=== PATIENT | male | born 1945 | race Caucasian/White ===

== ENCOUNTER 2017-09-20 19:19 | Inpatient (IN) ==
[2017-09-20] MEDS ORDERED: 0.9 % Sodium Chloride 1,000 ML IVC ONE (20:00)
--- NOTE | 2017-09-20 20:03 | Emergency Department Note ---
Disposition Clinical Impression: Elevated troponin, NSTEMI (non-ST elevated myocardial infarction) Cellulitis Qualifiers: Site of cellulitis: extremity Site of cellulitis of extremity: lower extremity Laterality: left Qualified Code(s): L03.116 - Cellulitis of left lower limb Sepsis Qualifiers: Sepsis type: sepsis due to unspecified organism Qualified Code(s): A41.9 - Sepsis, unspecified organism Disposition: Admitted As Inpatient Condition: Undetermined Referrals: Kleber Acuna, [Primary Care Provider] - Forms: ED Satisfaction Letter Time of Disposition: 22:09 Fever HPI - General Chief Complaint: ED Fever Stated Complaint: Weakness/fever Time Seen by Provider: 09/20/17 19:47 Source: patient, family Mode of arrival: private vehicle Limitations: no limitations Nursing Notes Reviewed: Yes Vital Signs Reviewed: Yes - History of Present Illness HPI Narrative: 71-year-old male arrives to the emergency department with generalized weakness. The patient states that he went to bed very late last night after leaving the template. The family member noted that he woke up at roughly 10 AM and was walking around and seemed kind of confused. She thought he just was not fully awake so she went walked him back to bed. She states that he woke up at 4:30 this afternoon and just continued to remain weak. He denies any other complaints other than a little bit of dyspnea which his not baseline for him as well as increased left lower extremity swelling and tenderness. The patient states she has no history of DVT but I previous record he has history of DVT. The patient takes no anticoagulation. He denies any other complaints at this time. He is febrile and tachycardic upon arrival to the emergency department. - Related Data Allergies Allergy/AdvReac Type Severity Reaction Status Date / Time No Known Allergies Allergy Verified 09/20/17 19:21 All systems ED: reviewed and negative except as stated. Constitutional: Reports: fever, chills, weakness ENT ED: Denies: congestion Cardiovascular: Reports: edema. Denies: chest pain, palpitations, dyspnea on exertion, orthopnea Respiratory: Reports: dyspnea. Denies: cough, wheezes, hemoptysis Gastrointestinal: Denies: abdominal pain, nausea, vomiting, diarrhea Genitourinary: Denies: urgency, dysuria Musculoskeletal: Denies: back pain, neck pain, arthralgia, myalgia Integumentary: Denies: rash Neurological: Reports: weakness, confusion. Denies: headache, numbness, paresthesias, abnormal gait, vertigo Fever PMH - Past Medical History Medical history: Reports: DVT, hyperlipidemia, hypertension Surgical history: Reports: non-contributory Psychiatric history: Reports: no psych history - Social History Smoking Status: Current every day smoker Alcohol use: Reports: none Drug use: Reports: none Physical Exam - General Limitations: no limitations General appearance: alert, in no apparent distress - Head Head exam: atraumatic, normocephalic, normal inspection - Eye Eye exam: Present: normal appearance, PERRL, EOMI - ENT ENT exam: normal exam, normal oropharynx, mucous membranes moist - Neck Neck exam: Present: normal inspection, full ROM, trachea midline - Chest Chest inspection: Present: normal inspection, symmetric chest wall rise - Respiratory Respiratory exam: Present: other (coarse breath sounds). Absent: respiratory distress, wheezes - Cardiovascular Cardiovascular exam: Present: normal rhythm, tachycardia, normal heart sounds - Abdominal Exam Abdominal exam: Present: soft, Non-Tender. Absent: tenderness, distention, guarding, rebound, rigidity - Extremities Exam Extremities exam: Present: full ROM, pedal edema, other (Chronic venous stasis staining WITH left lower extremity swelling and erythema). Absent: tenderness - Neurological Exam Neurological exam: Present: alert, oriented X3 - Expanded Neurological Exam Patient oriented to: Present: person, place, time Speech: Present: fluid speech Cranial nerves: EOM function (II, III, IV, ): Normal, facial sensation (V): Normal, facial palsy (VII): Normal Motor strength - LUE: 4/5 Motor strength - RUE: 4/5 Motor strength - LLE: 4/5 Motor strength - RLE: 4/5 Sensory exam upper extremity: light touch: Normal Sensory exam lower extremity: light touch: Normal Coma Scale Eye Opening: Spontaneous Coma Scale Motor Response: Obeys Commands Coma Scale Verbal Response: Oriented Coma Scale Total: 15 - Skin Skin exam: Present: warm, dry, erythema (Left lower extremity about the ankle. Hot to the touch.) Course Vital Signs Temperature 100.5 F H 09/20/17 19:21 Pulse Rate 105 09/20/17 19:21 Respiratory Rate 20 09/20/17 19:21 Blood Pressure 160/84 09/20/17 19:21 O2 Sat by Pulse Oximetry 94 09/20/17 19:21 Temperature 100.5 F H 09/20/17 19:21 Pulse Rate 105 09/20/17 19:21 Respiratory Rate 20 09/20/17 19:21 Blood Pressure 160/84 09/20/17 19:21 O2 Sat by Pulse Oximetry 95 09/20/17 20:04 Oxygen Delivery Oxygen Delivery Room Air Fever - MDM Narrative Medical decision making narrative: Workup in the emergency department demonstrates findings consistent with cellulitis of the left lower extremity. The patient had an elevated troponin without EKG changes. The patient was started on heparin. Patient denies any black or bloody stools any other signs of bleeding. In addition the patient's CTA of the chest with concerning for PE demonstrates no central pulmonary embolus but was difficult to assess in the segmental and subsegmental pulmonary arteries. Since the patient was started on heparin we will go ahead and admit the patient to the hospital. The patient was also started on vancomycin and cefepime with concern for the cellulitis. He is demonstrated an elevated lactic acid as well. The patient's heart rate is continued to decline on IV fluids. His O2 saturation is at 94-95% on room air. The patient's tachypnea has begun to resolve. The patient's blood pressure has rate stable throughout his stay in the emergency department. The patient was accepted to the hospital by Dr. Odell. - Lab Data Lab results reviewed: Yes I reviewed the patient's lab results. Result diagrams: 09/20/17 19:28 09/20/17 19:28 Lab Results 09/20/17 09/20/17 09/20/17 Range/Units 19:27 19:28 19:28 WBC 24.9 H (4.3-11.1) K/mcL RBC 4.36 (4.19-5.50) M/mcL Hgb 15.3 (12.9-16.9) g/dL Hct 42.8 (37.5-50.1) % MCV 98.2 (83.0-100.0) fL MCH 35.1 H (28.0-33.3) pg MCHC 35.7 H (31.6-35.5) g/dL RDW 12.7 (11.5-14.5) % Plt Count 158 (140-400) K/mcL MPV 10.7 (9.4-12.4) fL Immature Gran % 1.3 (0-4) % Seg Neutrophils % 90.9 % Lymphocytes % 2.5 % Monocytes % 5.2 % Eosinophils % 0.0 % Basophils % 0.1 % Neutrophils # 22.6 H (1.6-8.9) K/mcL Lymphocytes # 0.6 (0.6-4.6) K/mcL Monocytes # 1.3 (0.0-1.3) K/mcL Eosinophils # 0.0 (0.0-0.6) K/mcL Basophils # 0.0 (0.0-0.2) K/mcL Platelet Estimate Normal (Normal) D-Dimer 1867 H (0-500) ng/mLFEU Sodium 135 L (136-145) mEq/L Potassium 4.0 (3.5-5.1) mEq/L Chloride 104 (98-107) mEq/L Carbon Dioxide 20 L (23-29) mEq/L BUN 21 (8-23) mg/dL Creatinine 1.16 (0.70-1.30) mg/dL Est GFR ( Amer) > 60 (> 60) Est GFR (Non-Af Amer) > 60 (> 60) BUN/Creatinine Ratio 18 (6-26) Glucose 159 H (70-105) mg/dL Calculated Osmolality 286 (280-300) Lactic Acid (0.5-2.2) mmol/L Calcium 9.4 (8.6-10.3) mg/dL Troponin I 0.25 H* (< 0.04) ng/mL B-Natriuretic Peptide (Less than 100) pg/mL 09/20/17 09/20/17 09/20/17 Range/Units 19:28 20:05 21:28 WBC (4.3-11.1) K/mcL RBC (4.19-5.50) M/mcL Hgb (12.9-16.9) g/dL Hct (37.5-50.1) % MCV (83.0-100.0) fL MCH (28.0-33.3) pg MCHC (31.6-35.5) g/dL RDW (11.5-14.5) % Plt Count (140-400) K/mcL MPV (9.4-12.4) fL Immature Gran % (0-4) % Seg Neutrophils % % Lymphocytes % % Monocytes % % Eosinophils % % Basophils % % Neutrophils # (1.6-8.9) K/mcL Lymphocytes # (0.6-4.6) K/mcL Monocytes # (0.0-1.3) K/mcL Eosinophils # (0.0-0.6) K/mcL Basophils # (0.0-0.2) K/mcL Platelet Estimate (Normal) D-Dimer (0-500) ng/mLFEU Sodium (136-145) mEq/L Potassium (3.5-5.1) mEq/L Chloride (98-107) mEq/L Carbon Dioxide (23-29) mEq/L BUN (8-23) mg/dL Creatinine (0.70-1.30) mg/dL Est GFR ( Amer) (> 60) Est GFR (Non-Af Amer) (> 60) BUN/Creatinine Ratio (6-26) Glucose (70-105) mg/dL Calculated Osmolality (280-300) Lactic Acid 2.9 H 3.0 H (0.5-2.2) mmol/L Calcium (8.6-10.3) mg/dL Troponin I (< 0.04) ng/mL B-Natriuretic Peptide 187 H (Less than 100) pg/mL - Radiology Data Radiology results reviewed: Yes I reviewed the patient's radiology results. Chest X-Ray 09/20/17 19:28 IMPRESSION: No acute process. D/ / David Anthony MD / David Anthony MD Interpreting Provider: David nAthony MD Chest CTA 09/20/17 20:26 IMPRESSION: Limited evaluation of the segmental and subsegmental pulmonary arterial branches. No central pulmonary embolism. 6 mm nodule in a right upper lobe. Recommendations below RECOMMENDATIONS: Fleischner Society guidelines for follow-up and management of incidentally detected pulmonary nodules: Single Solid Nodule: Nodule size equals 6-8 mm In a low-risk patient, CT at 6-12 months, then consider CT at 18-24 months. In a high-risk patient, CT at 6-12 months, then CT at 18-24 months. - Low risk patients include individuals with minimal or absent history of smoking and other known risk factors. - High risk patients include individuals with a history or smoking or known risk factors. Radiology 2017 http://pubs.[facility]na.org/doi/full/10.1148/radiol.[email or web address] D/ / Monty Mansfield MD / Monty Mansfield MD Interpreting Provider: Monty Mansfield MD - EKG Data EKG attestation: Yes I reviewed and interpreted this EKG. EKG results narrative: Heart rate 10 2 bpm. Sinus tachycardia. Right bundle branch block. No ST elevation or ST depression noted.
[2017-09-20 20:15] LABS: Basophils % 0.1 %; Hematocrit 42.8 % (37.5-50.1); Hemoglobin 15.3 g/dL (12.9-16.9); Immature Granulocytes % 1.3 % (0-4); Lymphocytes # 0.6 K/mcL (0.6-4.6); Lymphocytes % 2.5 %; Mean Corpuscular HGB Conc 35.7 g/dL (31.6-35.5); Mean Corpuscular Hemoglobin 35.1 pg (28.0-33.3); Mean Corpuscular Volume 98.2 fL (83.0-100.0); Mean Platelet Volume 10.7 fL (9.4-12.4); Monocytes # 1.3 K/mcL (0.0-1.3); Monocytes % 5.2 %; Neutrophils # 22.6 K/mcL (1.6-8.9); Platelet Count 158 K/mcL (140-400); Red Blood Count 4.36 M/mcL (4.19-5.50); Red Cell Distribution Width 12.7 % (11.5-14.5); Segmented Neutrophils % 90.9 %
[2017-09-20] MEDS ORDERED: Isovue-370 500 ML INFUS..BTL IV ONE (20:26)
[2017-09-20] MEDS ORDERED: Ibuprofen 600 MG TABLET PO ONE (20:32)
[2017-09-20 20:36] LABS: Platelet Estimate Normal (Normal)
[2017-09-20 20:37] LABS: BUN/Creatinine Ratio 18 (6-26); Blood Urea Nitrogen 21 mg/dL (8-23); Calcium 9.4 mg/dL (8.6-10.3); Carbon Dioxide 20 mEq/L (23-29); Chloride 104 mEq/L (98-107); Glucose 159 mg/dL (70-105); Osmolality,Calculated 286 (280-300); Sodium 135 mEq/L (136-145); eGFR For African Americans > 60 (> 60); eGFR For Non-African Americans > 60 (> 60)
[2017-09-20 20:42] LABS: Troponin I 0.25 ng/mL (< 0.04)
[2017-09-20] MEDS ORDERED: Aspirin 325 MG TABLET PO ONE (20:42)
[2017-09-20] MEDS ORDERED: 0.9 % Sodium Chloride 500 ML IVC ONE (20:43)
--- NOTE | 2017-09-20 20:52 | Emergency Department Note ---
Disposition Clinical Impression: Cellulitis Qualifiers: Site of cellulitis: extremity Site of cellulitis of extremity: lower extremity Laterality: left Qualified Code(s): L03.116 - Cellulitis of left lower limb Disposition: Still a Patient Condition: Fair Referrals: Kleber Acuna DO [Primary Care Provider] - Forms: ED Satisfaction Letter General Adult HPI - General Chief complaint: ED Fever Stated complaint: Weakness/fever Time Seen by Provider: 09/20/17 19:47 Source: patient, family Mode of arrival: private vehicle Limitations: no limitations Nursing Notes Reviewed: Yes Vital Signs Reviewed: Yes - History of Present Illness Pain Scale: 0 - Related Data Allergies Allergy/AdvReac Type Severity Reaction Status Date / Time No Known Allergies Allergy Verified 09/20/17 19:21 Constitutional: Reports: fever, chills, weakness ENT ED: Denies: congestion Cardiovascular: Reports: edema. Denies: chest pain, palpitations, dyspnea on exertion, orthopnea Respiratory: Reports: dyspnea. Denies: cough, wheezes, hemoptysis Gastrointestinal: Denies: abdominal pain, nausea, vomiting, diarrhea Genitourinary: Denies: urgency, dysuria Musculoskeletal: Denies: back pain, neck pain, arthralgia, myalgia Integumentary: Denies: rash Neurological: Reports: weakness, confusion. Denies: headache, numbness, paresthesias, abnormal gait, vertigo Past Medical History - Past Medical History Medical history: Reports: DVT, hyperlipidemia, hypertension Surgical history: Reports: non-contributory Psychiatric history: Reports: no psych history - Social History Smoking Status: Current every day smoker Smokeless Tobacco Status: No Alcohol use: Reports: none Drug use: Reports: none Physical Exam - General Limitations: no limitations General appearance: alert, in no apparent distress Course Vital Signs Temperature 100.5 F H 09/20/17 19:21 Pulse Rate 105 09/20/17 19:21 Respiratory Rate 20 09/20/17 19:21 Blood Pressure 160/84 09/20/17 19:21 O2 Sat by Pulse Oximetry 94 09/20/17 19:21 Temperature 100.5 F H 09/20/17 19:21 Pulse Rate 105 09/20/17 19:21 Respiratory Rate 20 09/20/17 19:21 Blood Pressure 160/84 09/20/17 19:21 O2 Sat by Pulse Oximetry 95 09/20/17 20:04 Oxygen Delivery Oxygen Delivery Room Air Medical Decision Making - Lab Data Result diagrams: 09/20/17 19:28 Lab Results 09/20/17 09/20/17 09/20/17 Range/Units 19:27 19:28 20:05 WBC 24.9 H (4.3-11.1) K/mcL RBC 4.36 (4.19-5.50) M/mcL Hgb 15.3 (12.9-16.9) g/dL Hct 42.8 (37.5-50.1) % MCV 98.2 (83.0-100.0) fL MCH 35.1 H (28.0-33.3) pg MCHC 35.7 H (31.6-35.5) g/dL RDW 12.7 (11.5-14.5) % Plt Count 158 (140-400) K/mcL MPV 10.7 (9.4-12.4) fL Immature Gran % 1.3 (0-4) % Seg Neutrophils % 90.9 % Lymphocytes % 2.5 % Monocytes % 5.2 % Eosinophils % 0.0 % Basophils % 0.1 % Neutrophils # 22.6 H (1.6-8.9) K/mcL Lymphocytes # 0.6 (0.6-4.6) K/mcL Monocytes # 1.3 (0.0-1.3) K/mcL Eosinophils # 0.0 (0.0-0.6) K/mcL Basophils # 0.0 (0.0-0.2) K/mcL Platelet Estimate Normal (Normal) D-Dimer 1867 H (0-500) ng/mLFEU Lactic Acid 2.9 H (0.5-2.2) mmol/L Attestation Statement - Attestation Attestation: I, Guy Apple, examined this patient and my medical decision-making was reviewed with the MORTGAGE OPERATIONS MANAGER/PA/Advanced Practice Nurse/Resident Physician. I agree with the documented findings, disposition and treatment plan as described except to the extent set forth below. 71-year-old male presents emergency department for further evaluation of weakness, fever. Daughter states patient was in his usual state of health last night when he attended a play. He woke this morning with increased erythema and edema of the left lower extremity as well as increased shortness of breath. Patient states he has had a dry nonproductive cough for multiple weeks which has not changed. He denies abdominal pain. No other recent changes in medications however he is noncompliant with his Lasix. Patient denies chest pain, palpitations, near syncopal event. On physical evaluation the patient has swelling of the left lower extremity with increased urinary erythema and warmth to the touch compared to the right lower extremity. Patient satting 95% in the emergency department. Patient was febrile and tachycardic on the initial evaluation. We will obtain CT of the chest and ultrasound of the left lower extremity to rule out thromboembolism. Laboratory evaluation and imaging is pending at this time. Patient will likely be admitted to the hospital.
[2017-09-20] MEDS ORDERED: Cefepime HCl 1,000 MG in Water for inj. (sterile) 20 ML 10 ML IVP STA (21:52)
[2017-09-20] MEDS ORDERED: *HR* Heparin 5,000 UNIT/ML VIAL IVP PRN ×2 (22:04)
[2017-09-20] MEDS ORDERED: *HR* Heparin 5,000 UNIT/ML VIAL IVP ONE (22:04)
[2017-09-20 22:16] LABS: INR 1.2; Prothrombin Time 13.4 Seconds (9.4-12.1)
[2017-09-20 22:19] LABS: Activated Partial Thrombo Time 27.7 Seconds (26.0-36.0)
[2017-09-20 22:20] LABS: Bilirubin,Urine Negative (Negative); Blood,Urine Moderate (Negative); Clarity,Urine Clear (Clear); Color,Urine Yellow (Yellow); Glucose,Urine (UA) Normal (Normal); Ketones,Urine Negative (Negative); Leukocyte Esterase,Urine Negative (Negative); Nitrite,Urine Negative (Negative); Protein,Urine 100 mg/dL (Neg-Trace); Specific Gravity,Urine > 1.030 (1.010-1.025); Urobilinogen,Urine Normal (Normal)
[2017-09-20 22:21] LABS: Hyaline Casts,Urine None Seen per lpf (None-Few); Squamous Epithelial Cell,Urine Many per lpf (None-Few); WBC,Urine 0-3 per hpf (0-3)
[2017-09-20 22:30] LABS: Bacteria,Urine Few per hpf (None-Few)
[2017-09-20] MEDS ORDERED: traMADol 50 MG TABLET PO PRN (22:47)
[2017-09-20] MEDS ORDERED: Acetaminophen 325 MG TABLET PO PRN (22:47)
[2017-09-20] MEDS ORDERED: Naloxone 0.4 MG/ML INJ IVP PRN (22:47)
[2017-09-20] MEDS ORDERED: Vancomycin (wt based) 1,000 MG VIAL IVPB SCH (23:00)
--- NOTE | 2017-09-20 23:13 | Internal Med History&Physical ---
Date of Encounter: 09/20/17 Time of Encounter: 22:30 Internal Medicine - H&P: HPI Chief complaint: SOB; fever; leg pain/swelling Admitted From: Emergency Dept Plans for Post Hospital Care: Home History of present illness: Mr. Lang is a 71 year old male who presents with a 12-15 hour history of short of breath, low-grade fevers, weakness, left leg pain, and chills. He was seen and evaluated in the ER and found to have evidence of left lower extremity cellulitis and sepsis. Additionally, he had an elevated d-dimer and positive troponin. This prompted CT angiogram of chest which was of sub-optimal quality. Nonetheless, it did did rule out any central pulmonary embolus. Lower Extremity Doppler studies were ordered and have yet to be done. Nonetheless, he is being started on heparin drip given his symptoms and troponin elevation. He was subsequently admitted to the hospitalist service. Upon my assessment of the patient, he appears ill but nontoxic. He appears dehydrated. He admits to having had sudden onset of shortness of breath earlier this morning, low grade fever, left leg pain, and left leg swelling. He denies any chest pain, cough, congestion, vomiting, or diarrhea. He denies any heart disease history or any history of clots. He does have sleep apnea and has been noncompliant with his CPAP mask. Regarding concern for clot, family history is negative for DVT or PE. Furthermore, he has had no prolonged travel or injury to his vasculature of his lower extremities. Past Med Surg Social Fam HX - Past Medical History Attestation: Yes The following information was validated with the patient. Source: patient, obtained from family, other (ER records) Medical history: hyperlipidemia, hypertension Psychiatric history: no psych history - Past Surgical History Surgical History: no surgical history - Social History Smoking Status: Current every day smoker Smokeless Tobacco Status: No Alcohol use: none Drug use: none Current living situation: Home, With Family Activity Level: Independent ambulation Recent Out of Country Travel Within the Last 8 Weeks: No - Family History Mother Living Status: Hx Family Cardiac Disorders: No Father Living Status: Hx Family Cardiac Disorders: Yes - Additional Family History Additional family history: NO FH DVT/PE Internal Medicine - H&P: Meds 3 Allergy/AdvReac Type Severity Reaction Status Date / Time No Known Allergies Allergy Verified 09/20/17 19:21 - Constitutional Constitutional: chills, fever(s), weakness, no night sweats - EENT Eyes: no blurry vision, no change in vision Ears: no ear pain, no tinnitus Nose, mouth and throat: no nasal congestion, no nasal discharge, no sinus pressure, no sore throat - Cardiovascular Cardiovascular ROS IM: dyspnea, dyspnea on exertion, edema (chronic BLE; acute LLE), no chest pain, no lightheadedness, no orthopnea, no palpitations, no paroxysmal nocturnal dyspnea, no syncope - Respiratory Respiratory: dyspnea, dyspnea on exertion, no cough, no hemoptysis, no wheezing , no pain on inspiration, no chest congestion, no excessive phlegm production, no change in phlegm color, no pain with cough - Gastrointestinal Gastrointestinal: no abdominal pain, no diarrhea, no hematemesis, no hematochezia, no melena, no nausea, no vomiting - Genitourinary Genitourinary ROS male: no dysuria, no flank pain, no hematuria - Musculoskeletal Musculoskeletal ROS IM: muscle cramps, myalgias (left leg), no arthralgias, no back pain, no limited range of motion - Integumentary Integumentary IM: rash (LLE redness), no jaundice - Neurological Neurological ROS: no dizziness, no focal weakness, no frequent falls, no headache(s) - Psychiatric Psychiatric: no anxiety, no depression - Endocrine Endocrine IM: no polydipsia, no polyuria - Allergic/Immunologic Allergic/Immunologic: no wheezing, no GI upset with certain foods - Constitutional Vitals: Temp Pulse Resp BP Pulse Ox 100.5 F H 105 20 160/84 95 09/20/17 19:21 09/20/17 19:21 09/20/17 19:21 09/20/17 19:21 09/20/17 20:04 General appearance: Present: cooperative, mild distress (appears ill but non- toxic; dry), A&O X 3, pleasant, answers questions appropriately - Head Head exam: Present: atraumatic, normal inspection - Eye Eye exam: Present: EOMI, normal appearance, PERRL. Absent: scleral icterus Pupils: Present: normal accommodation - ENT ENT exam: Present: mucous membranes dry, normal exam, normal oropharynx - Neck Neck exam general surgery: Present: full ROM, supple. Absent: lymphadenopathy, tenderness, nuchal rigidity, thyromegaly - Expanded Neck Exam Neck exam: Absent: carotid bruit - Respiratory Respiratory exam: Present: CTAB. Absent: accessory muscle use, chest wall tenderness, rales, respiratory distress, rhonchi, wheezes - Cardiovascular Cardiovascular exam: Present: distant heart sounds, RRR, +S1, +S2. Absent: diastolic murmur, JVD, systolic murmur - GI/Abdominal GI/Abdominal exam: Present: normal bowel sounds, soft. Absent: guarding, hepatomegaly, mass, rebound, splenomegaly, tenderness - Extremities Exam Extremities exam: Present: full ROM, normal capillary refill, pedal edema (L>R) , tenderness (LLE (foot/ankle area) -- surrounding cellulitis), warm (LLE), radial pulses palpable and symmetrical. Absent: calf tenderness, joint swelling , mottling - Back Exam Back exam: Present: normal inspection. Absent: CVA tenderness (L), CVA tenderness (R) - Neurological Exam Neurological exam: Present: alert, CN II-XII intact, oriented X3, no focal deficits, strengths equal and symetr throughout - Psychiatric Psychiatric exam: Present: normal affect, normal mood - Skin Skin exam: Present: dry, erythema (LLE with cellulitis changes), warm Additional comments: chronic venous stasis changes in both LE (pretibial areas) with acute cellulitis of LLE Internal Med - H&P Results - Labs CBC & Chem 7: 09/20/17 19:28 09/20/17 19:28 - EKG Data -: EKG Interpreted by Myself - EKG Data Prior EKG available for review: no EKG comments: 09/20/17 23:19 NSR; RBBB; no acute changes - Diagnostic Studies Chest x-ray Status: image reviewed by me (negative) CT scan - chest Additional comments: Report reviewed -- sub-optimal study but no central PE - Assessment and plan (1) Sepsis Current Visit: Yes Status: Acute Assessment and plan: 1. Patient received fluid boluses in ER. 2. Continue MIV and trend lactate levels. 3. BP stable. 4. Blood cultures drawn. 5. Source is likely LLE cellulitis. 6. Monitor on telemetry and with frequent hemodynamic assessment. Qualifiers: Sepsis type: sepsis due to unspecified organism Qualified Code(s): A41.9 - Sepsis, unspecified organism (2) Cellulitis Current Visit: Yes Status: Acute Assessment and plan: 1. Cultures as above. 2. Continue IV Vancomycin and Cefepime. 3. Monitor clinically. 4. Change to oral antibiotics once sepsis resolves. Qualifiers: Site of cellulitis: extremity Site of cellulitis of extremity: lower extremity Laterality: left Qualified Code(s): L03.116 - Cellulitis of left lower limb (3) Elevated troponin Current Visit: Yes Status: Acute Assessment and plan: 1. Will trend troponins and EKG's. 2. ECHO to assess LV function and for RVH. 3. Consult cardiology as he will need cardiac work-up once sepsis resolves. 4. Start ASA and STATIN. (4) DVT prophylaxis Current Visit: Yes Status: Acute Assessment and plan: 1. Heparin gtt initiated in ER -- will continue until DVT/PE ruled out and NSTEMI ruled out.
[2017-09-21] MEDS: Heparin 25,000 UNIT/500 ML D5W 25,000 UNIT/500 ML BAG IVC SCH ×2 (00:01→08:20)
[2017-09-21] MEDS: 0.9 % Sodium Chloride 1,000 ML IVC SCH ×2 (00:46→08:19)
[2017-09-21 01:35] LABS: Basophils # 0.1 K/mcL (0.0-0.2); Basophils % 0.2 %; Hematocrit 40.9 % (37.5-50.1); Hemoglobin 14.1 g/dL (12.9-16.9); Immature Granulocytes % 1.3 % (0-4); Lymphocytes # 0.9 K/mcL (0.6-4.6); Lymphocytes % 4.3 %; Mean Corpuscular HGB Conc 34.5 g/dL (31.6-35.5); Mean Corpuscular Hemoglobin 34.7 pg (28.0-33.3); Mean Corpuscular Volume 100.7 fL (83.0-100.0); Mean Platelet Volume 10.7 fL (9.4-12.4); Monocytes % 4.9 %; Neutrophils # 18.3 K/mcL (1.6-8.9); Platelet Count 139 K/mcL (140-400); Red Blood Count 4.06 M/mcL (4.19-5.50); Segmented Neutrophils % 89.3 %
[2017-09-21 01:41] LABS: INR 1.4
[2017-09-21 01:49] LABS: Activated Partial Thrombo Time 42.9 Seconds (26.0-36.0)
[2017-09-21 01:55] LABS: Alanine Aminotransferase 20 Units/L (7-52); Albumin 3.7 g/dL (3.5-5.7); Albumin/Globulin Ratio 1.4 (1.1-2.2); Alkaline Phosphatase 46 Units/L (34-104); Aspartate Amino Transferase 26 Units/L (13-39); BUN/Creatinine Ratio 21 (6-26); Bilirubin,Total 0.6 mg/dL (0.3-1.0); Blood Urea Nitrogen 23 mg/dL (8-23); Calcium 8.8 mg/dL (8.6-10.3); Carbon Dioxide 21 mEq/L (23-29); Chloride 106 mEq/L (98-107); Chol/HDL Ratio 3.1 (0-4.9); Cholesterol 119 mg/dL (< 200); Globulin 2.6 g/dL (2.4-3.5); Glucose 144 mg/dL (70-105); HDL Cholesterol 39 mg/dL (40-59); LDL Cholesterol,Calculated 65 mg/dL (0-99); Magnesium 1.7 mg/dL (1.6-2.6); Osmolality,Calculated 292 (280-300); Potassium 3.6 mEq/L (3.5-5.1); Sodium 138 mEq/L (136-145); Total Protein 6.3 g/dL (6.4-8.9); Triglycerides 73 mg/dL (< 150); eGFR For African Americans > 60 (> 60); eGFR For Non-African Americans > 60 (> 60)
[2017-09-21] MEDS: Cefepime HCl 2,000 MG in Water for inj. (sterile) 20 ML 20 ML IVP SCH ×2 (05:50→17:54)
[2017-09-21] MEDS: Aspirin 81 MG TAB.CHEW PO SCH (07:52)
--- NOTE | 2017-09-21 08:08 | Internal Med Progress Note ---
Date of Encounter: 09/21/17 Time of Encounter: 08:07 - Assessment and plan (1) Sepsis Current Visit: Yes Status: Acute Assessment and plan: Status post IV boluses. Lactic acidosis corrected. Source is cellulitis as below. We will treat as below. Qualifiers: Sepsis type: sepsis due to unspecified organism Qualified Code(s): A41.9 - Sepsis, unspecified organism (2) Cellulitis Current Visit: Yes Status: Acute Assessment and plan: Met sepsis criteria with leukocytosis, tachycardia, fever and source being the cellulitis. We will continue current IV vancomycin and cefepime and de- escalate by tomorrow if he continues to show signs of improvement. Qualifiers: Site of cellulitis: extremity Site of cellulitis of extremity: lower extremity Laterality: left Qualified Code(s): L03.116 - Cellulitis of left lower limb (3) Elevated troponin Current Visit: Yes Status: Acute Assessment and plan: Troponins are 0.25, 0.24, 0.20. No chest pain. EKG with no ST or T-wave changes. We will follow-up on cardiology's assessments and plans. Follow-up on echo results. Continue with heparin drip. Continue aspirin and statin started overnight. Lipid panel noted. (4) NSTEMI (non-ST elevated myocardial infarction) Current Visit: Yes Status: Acute Assessment and plan: plan as above. possibly NSTEMI type II. (5) Elevated d-dimer Current Visit: Yes Status: Acute Assessment and plan: PE ruled out. LE dopplers prelim neg (6) DVT prophylaxis Current Visit: Yes Status: Acute Assessment and plan: Patient is on a heparin drip. - Time Spent With Patient Total time spent is greater than 50% in coordination of care (as documented) at patient's floor/unit and/or counseling patient: - Subjective Interval history: Patient was seen and examined. Still lethargic. MAXIMUM TEMPERATURE 100.5. Admitted last night with sepsis due to left lower extremity cellulitis. Had elevated troponins. No EKG ST or T-wave abnormalities. - Constitutional Vitals: Temp Pulse Resp BP Pulse Ox 99.2 F 89 20 149/80 95 09/21/17 06:56 09/21/17 06:56 09/21/17 06:56 09/21/17 06:56 09/21/17 06:56 General appearance: Present: cooperative, mild distress (appears ill but non- toxic; dry), A&O X 3, pleasant, answers questions appropriately Exam: GEN: NAD CVS: RRR. S1, S2, No m/r/g RESP: CTAB ABD: Soft, NT, ND, +BS EXT: both LE with chronic venous changes. Left lower extremity redness and warmth noted at the foot and ankle area. Mild edema. 2+ DP. No rashes NEURO: Nonfocal Internal Medicine: Result - Labs CBC & Chem 7: 09/21/17 01:22 09/21/17 01:22 Labs: Short CBC 09/21/17 Range/Units 01:22 WBC 20.5 H (4.3-11.1) K/mcL Hgb 14.1 (12.9-16.9) g/dL Hct 40.9 (37.5-50.1) % Plt Count 139 L (140-400) K/mcL Neutrophils # 18.3 H (1.6-8.9) K/mcL BMP 09/21/17 01:22 Sodium 138 Potassium 3.6 Chloride 106 Carbon Dioxide 21 L BUN 23 Creatinine 1.11 Glucose 144 H Calcium 8.8 Cardiac Enzymes 09/21/17 09/21/17 Range/Units 01:22 06:41 Troponin I 0.24 H* 0.20 H* (< 0.04) ng/mL Liver Function 09/21/17 Range/Units 01:22 Total Bilirubin 0.6 (0.3-1.0) mg/dL AST 26 (13-39) Units/L ALT 20 (7-52) Units/L Alkaline Phosphatase 46 (34-104) Units/L Albumin 3.7 (3.5-5.7) g/dL - ABG Interpretation ABG results: PT/INR, D-dimer PT 15.0 Seconds (9.4-12.1) H 09/21/17 01:22 D-Dimer 1867 ng/mLFEU (0-500) H 09/20/17 19:27 - Impressions Impressions Chest X-Ray 09/21/17 06:00 IMPRESSION: Hypoinflated lungs. Otherwise, no acute cardiopulmonary abnormality. D/ / Mt Crooks MD / Mt Crooks MD Interpreting Provider: Mt Crooks MD Consult Discharge Plan - Plan Referrals: Kleber Acuna DO [Primary Care Provider] -
--- NOTE | 2017-09-21 13:31 | Cardiology Consult Note ---
<Betsy Light L - Last Filed: 09/21/17 13:31> Date of Encounter: 09/21/17 Time of Encounter: 13:00 Assessment and Plan (1) Elevated troponin Current Visit: Yes Status: Acute Mild, adynamic troponin elevation in the setting of sepsis; suspect demand ischemia. Patient denies chest pain or discomfort. No acute ST/T wave abnormalities noted on ECG. Continue asa and statin. Will add low dose betablocker. Can d/c heparin gtt. Check echocardiogram to evaluate structure and function. No indication for cardiac rehab. If not significant abnormalities noted on TTE, no further cardiac testing recommended as inpatient. Recommend outpatient ischemic evaluation once acute issues have resolved. Recommend outpatient sleep study to evaluate for LUAN. (2) Essential hypertension Current Visit: Yes Status: Acute Control not ideal. Will add betablocker. (3) Cellulitis Current Visit: Yes Status: Acute Mgmt per primary service. Qualifiers: Site of cellulitis: extremity Site of cellulitis of extremity: lower extremity Laterality: left Qualified Code(s): L03.116 - Cellulitis of left lower limb Discussion w patient/family: The assessment and plan as outlined above was discussed with the patient and/or family members who expressed understanding and agreement. All questions were answered. Thank you for involving us in the care of your patient. Please call with any questions. THe patient will be discussed and reviewed with Dr. Jorge; changes to be made accordingly. History of Present Illness Consult date: 09/21/17 Requesting physician: Mal Nicole Consult reason: Elevated troponin Chief complaint: Fever, weakness History of present illness: Mr. Lang is a 71 year old male with PMHx significant for morbid obesity, HTN, and arthritis who presented to the ED with complaints of subjective fevers/ chills and weakness since Friday. Nothing seemed to improve or worsen symptoms. He denies chest pain/discomfort, palpitations, dizziness, pre-syncope/ syncope. He does report shortness of breath, however is unchanged. Upon arrival to ED he was noted to have leukocytosis, tachycardia, and a fever and was started on IV atb for sepsis. He has LE cellulitis, L>R. Troponin was checked and found to be mildly elevated. No ischemic ECG changes noted. He denies prior CV history or testing. Cardiology consulted for elevated troponin. Past Med Surg Social Fam HX - Past Medical History Attestation: Yes The following information was validated with the patient. Source: patient Medical history: hyperlipidemia, hypertension Psychiatric history: no psych history - Past Surgical History Surgical History: no surgical history - Social History Smoking Status: Current every day smoker Smokeless Tobacco Status: No Alcohol use: none Drug use: none - Family History Mother Living Status: Hx Family Cardiac Disorders: No Father Living Status: Hx Family Cardiac Disorders: Yes Medications and Allergies Aspirin [Lo-Dose Aspirin EC] 81 mg PO DAILY 09/21/17 [History] Benzonatate [Tessalon] 100 mg PO TID 09/21/17 [History] Calcium Carbonate [Calcium] 600 mg PO DAILY 09/21/17 [History] Cholecalciferol (D-3) [Vitamin D] 1,000 unit PO DAILY 09/21/17 [History] Diclofenac Sodium [Voltaren] 2 gm TP QID 09/21/17 [History] Losartan Potassium [Cozaar] 100 mg PO DAILY 09/21/17 [History] Meloxicam [Mobic] 15 mg PO DAILY 09/21/17 [History] Potassium Chloride [Klor-Con 10] 10 meq PO DAILY 09/21/17 [History] Simvastatin [Zocor] 40 mg PO HS 09/21/17 [History] 3 Allergy/AdvReac Type Severity Reaction Status Date / Time No Known Allergies Allergy Verified 09/20/17 19:21 All Systems Review: The remainder of the systems were reviewed and are negative - Cardiovascular Cardiovascular: as per HPI Physical Examination Vital Signs, Last 4 Hours Temp Pulse Resp BP Pulse Ox 09/21/17 11:53 99.0 F 93 18 156/73 94 General: Conversant, Other (morbidly obese) HEENT: Atraumatic, Normocephaly Cardiac: Reg Rate and Rhythm, Normal S1 and S2 Lungs: Other (decreased) Neuro: Alert and responsive Abdomen: Soft Skin: No rashes noted on visualized skin Extremities: Other (significant LE edema, with cellulitis L>R) Results 09/21/17 01:22 09/21/17 01:22 Lab Results 09/21/17 09/21/17 09/21/17 01:22 01:22 01:22 WBC 20.5 H Hgb 14.1 Hct 40.9 Plt Count 139 L INR 1.4 APTT 42.9 H D Sodium Potassium Chloride Carbon Dioxide BUN Creatinine Glucose Calcium Magnesium Total Bilirubin AST ALT Alkaline Phosphatase Troponin I 0.24 H* 09/21/17 09/21/17 09/21/17 01:22 06:41 06:41 WBC Hgb Hct Plt Count INR APTT 38.3 H Sodium 138 Potassium 3.6 Chloride 106 Carbon Dioxide 21 L BUN 23 Creatinine 1.11 Glucose 144 H Calcium 8.8 Magnesium 1.7 Total Bilirubin 0.6 AST 26 ALT 20 Alkaline Phosphatase 46 Troponin I 0.20 H* Active Medications Acetaminophen (Tylenol) 650 mg PO Q6H PRN PRN Reason: Mild Pain/Fever Stop: 03/22/18 22:48 Aspirin (Aspirin) 81 mg PO DAILY MIRIAN Stop: 03/23/18 09:01 Last Admin: 09/21/17 07:52 Dose: 81 mg Atorvastatin Calcium (Lipitor) 20 mg PO HS MIRIAN Stop: 03/23/18 21:01 Heparin Sodium (Porcine) (Heparin Lock) 500 unit IV ONCE PRN PRN Reason: Port Flush while in RADIOLOGY Stop: 09/22/17 20:26 Heparin Sodium (Porcine) (Heparin) 4,000 unit IVP Q6HR PRN PRN Reason: SEE COMMENTS Stop: 03/22/18 22:05 Last Admin: 09/21/17 07:52 Dose: 4,000 unit Heparin Sodium (Porcine) (Heparin) 2,000 unit IVP Q6H PRN PRN Reason: SEE COMMENTS Stop: 03/22/18 22:05 Hydralazine HCl (Hydralazine) 10 mg IVP Q6HR PRN PRN Reason: Hypertension Stop: 03/22/18 22:57 Heparin Sodium/Dextrose (Heparin 25,000 Unit/500 Ml D5w) 25,000 unit in 500 mls @ 20.031 mls/hr IVC .Q24H MIRIAN; 9.6 UNIT/KG/HR PRN Reason: Protocol Stop: 03/22/18 22:16 Last Admin: 09/21/17 08:20 Dose: 13.6 unit/kg/hr, 28.377 mls/hr Cefepime HCl 2,000 mg/ Sterile (Water) 20 mls @ 300 mls/hr IVP Q12HR MIRIAN Stop: 03/23/18 06:01 Last Infusion: 09/21/17 07:56 Dose: Infused Vancomycin HCl 1,500 mg/ (Sodium Chloride) 250 mls @ 166.67 mls/hr IVPB Q12H MIRIAN Stop: 03/23/18 11:01 Last Admin: 09/21/17 11:26 Dose: 166.67 mls/hr Naloxone HCl (Narcan) 0.4 mg IVP Q2MIN PRN PRN Reason: SEE COMMENTS Stop: 03/22/18 22:48 Tramadol HCl (Ultram) 50 mg PO Q6H PRN PRN Reason: Moderate Pain Stop: 03/22/18 22:48 - Imaging and Cardiology Echo: pending - EKG Interpretation EKG results cardiology: personally reviewed Consult Discharge Plan - Plan Referrals: Kleber Acuna, [Primary Care Provider] - <Otto Jorge - Last Filed: 09/21/17 21:03> Date of Encounter: 09/21/17 Time of Encounter: 20:00 - Attending Attestation I have personally performed a face to face evaluation on this patient. I have reviewed and agree with the care plan. History and Exam by me shows: CC: weakness, fever and chills Pt presented to ER with complaint of five day history of fever and chills, come and go every four to six hours, with progressive weakness and fatigue. He denies chest pain, pressure or palpitations. HE has had baseline dizziness with change in position for several days. He also admits to two pillow orthopnea for last week prior to admission. HE has no previous cardiac history , but does have risk factors including male gender, hypertension and tobacco abuse. He does note increasing bilateral lower leg swelling, progressive over last several days with increased itching and burning. He denies fever or chills. He notes legs not longer decrease in swelling when elevated PMH: reviewed PE: Pt seen and examined, agree with documentation of current findings IMP: 1. Elevated troponin, not climbing, no cardiac symptoms, reviewed, appears demand ischemia, not an acute ischemic event, will continue to modify risk factors as he tolerates. Will order echo to eval LV function, subsegmental wall motion abnormalites. 2. Cellulitis bilat lower extremities, started IV diuresis with some improvement. 3. Hypertension: mostly controlled on current meds, will follow with the addition of 4. Tobacco abuse, discussed life style changes, smoking cessation Assessment and Plan Discussion w patient/family: The assessment and plan as outlined above was discussed with the patient and/or family members who expressed understanding and agreement. All questions were answered. Thank you for involving us in the care of your patient. Please call with any questions. History of Present Illness History of present illness: Mr. Lang is a 71 year old male All Systems Review: The remainder of the systems were reviewed and are negative Physical Examination Vital Signs, Last 4 Hours Temp 09/21/17 17:51 99.2 F Results 09/21/17 01:22 09/21/17 01:22 Lab Results 09/21/17 09/21/17 09/21/17 01:22 01:22 01:22 WBC 20.5 H Hgb 14.1 Hct 40.9 Plt Count 139 L INR 1.4 APTT 42.9 H D Sodium Potassium Chloride Carbon Dioxide BUN Creatinine Glucose Calcium Magnesium Total Bilirubin AST ALT Alkaline Phosphatase Troponin I 0.24 H* 09/21/17 09/21/17 09/21/17 01:22 06:41 06:41 WBC Hgb Hct Plt Count INR APTT 38.3 H Sodium 138 Potassium 3.6 Chloride 106 Carbon Dioxide 21 L BUN 23 Creatinine 1.11 Glucose 144 H Calcium 8.8 Magnesium 1.7 Total Bilirubin 0.6 AST 26 ALT 20 Alkaline Phosphatase 46 Troponin I 0.20 H* 09/21/17 14:31 WBC Hgb Hct Plt Count INR APTT 44.4 H Sodium Potassium Chloride Carbon Dioxide BUN Creatinine Glucose Calcium Magnesium Total Bilirubin AST ALT Alkaline Phosphatase Troponin I
[2017-09-22 05:17] LABS: Basophils % 0.3 %; Hematocrit 38.5 % (37.5-50.1); Hemoglobin 13.1 g/dL (12.9-16.9); Immature Granulocytes % 0.6 % (0-4); Lymphocytes # 0.8 K/mcL (0.6-4.6); Lymphocytes % 7.7 %; Mean Corpuscular Hemoglobin 34.3 pg (28.0-33.3); Mean Corpuscular Volume 100.8 fL (83.0-100.0); Mean Platelet Volume 11.1 fL (9.4-12.4); Monocytes # 0.8 K/mcL (0.0-1.3); Monocytes % 8.2 %; Neutrophils # 8.5 K/mcL (1.6-8.9); Platelet Count 111 K/mcL (140-400); Red Blood Count 3.82 M/mcL (4.19-5.50); Red Cell Distribution Width 13.2 % (11.5-14.5); Segmented Neutrophils % 83.2 %
[2017-09-22 05:36] LABS: BUN/Creatinine Ratio 20 (6-26); Blood Urea Nitrogen 18 mg/dL (8-23); Calcium 8.5 mg/dL (8.6-10.3); Carbon Dioxide 22 mEq/L (23-29); Chloride 107 mEq/L (98-107); Glucose 126 mg/dL (70-105); Magnesium 1.9 mg/dL (1.6-2.6); Osmolality,Calculated 279 (280-300); Potassium 3.7 mEq/L (3.5-5.1); Sodium 133 mEq/L (136-145); eGFR For African Americans > 60 (> 60); eGFR For Non-African Americans > 60 (> 60)
[2017-09-22] MEDS: Cefepime HCl 2,000 MG in Water for inj. (sterile) 20 ML 20 ML IVP SCH (06:48)
--- NOTE | 2017-09-22 07:35 | Internal Med Progress Note ---
Date of Encounter: 09/22/17 Time of Encounter: 07:33 - Assessment and plan (1) Sepsis Current Visit: Yes Status: Acute Assessment and plan: Status post IV boluses. Lactic acidosis corrected. Source is cellulitis as below. We will treat as below. Qualifiers: Sepsis type: sepsis due to unspecified organism Qualified Code(s): A41.9 - Sepsis, unspecified organism (2) Cellulitis Current Visit: Yes Status: Acute Assessment and plan: Met sepsis criteria with leukocytosis, tachycardia, fever and source being the cellulitis. We will continue current IV vancomycin and stop cefepime Qualifiers: Site of cellulitis: extremity Site of cellulitis of extremity: lower extremity Laterality: left Qualified Code(s): L03.116 - Cellulitis of left lower limb (3) Elevated troponin Current Visit: Yes Status: Acute Assessment and plan: Troponins are 0.25, 0.24, 0.20. No chest pain. EKG with no ST or T-wave changes. heparin drip ok to stop per cardiology. Stopped 09/21. Outpatient ischemic eval. Follow-up on echo results. Continue aspirin and statin started overnight. Lipid panel noted. (4) NSTEMI (non-ST elevated myocardial infarction) Current Visit: Yes Status: Acute Assessment and plan: plan as above. possibly NSTEMI type II. (5) Elevated d-dimer Current Visit: Yes Status: Acute Assessment and plan: PE ruled out. LE dopplers prelim neg (6) DVT prophylaxis Current Visit: Yes Status: Acute Assessment and plan: heparin SQ. - Time Spent With Patient Total time spent is greater than 50% in coordination of care (as documented) at patient's floor/unit and/or counseling patient: - Subjective Interval history: Patient was seen and examined. Starting to feel better MAXIMUM TEMPERATURE 99.1 last 24 hour. Admitted with sepsis due to left lower extremity cellulitis. Had elevated troponins. Started on heparin drip but stopped yesterday after cardiology saw. No EKG ST or T-wave abnormalities. - Constitutional Vitals: Temp Pulse Resp BP Pulse Ox 98.3 F 82 16 137/82 96 09/22/17 07:20 09/22/17 07:20 09/22/17 07:20 09/22/17 07:20 09/22/17 07:20 General appearance: Present: cooperative, mild distress (appears ill but non- toxic; dry), A&O X 3, pleasant, answers questions appropriately Exam: GEN: NAD CVS: RRR. S1, S2, No m/r/g RESP: CTAB ABD: Soft, NT, ND, +BS EXT: both LE with chronic venous changes. Left lower extremity redness and warmth noted at the foot and ankle area. Mild edema. 2+ DP. No rashes NEURO: Nonfocal Internal Medicine: Result - Labs CBC & Chem 7: 09/22/17 04:41 09/22/17 04:41 Labs: Short CBC 09/22/17 Range/Units 04:41 WBC 10.2 D (4.3-11.1) K/mcL Hgb 13.1 (12.9-16.9) g/dL Hct 38.5 (37.5-50.1) % Plt Count 111 L (140-400) K/mcL Neutrophils # 8.5 (1.6-8.9) K/mcL BMP 09/22/17 04:41 Sodium 133 L Potassium 3.7 Chloride 107 Carbon Dioxide 22 L BUN 18 Creatinine 0.90 Glucose 126 H Calcium 8.5 L - ABG Interpretation ABG results: PT/INR, D-dimer PT 15.0 Seconds (9.4-12.1) H 09/21/17 01:22 D-Dimer 1867 ng/mLFEU (0-500) H 09/20/17 19:27 - Impressions Impressions Chest X-Ray 09/21/17 06:00 IMPRESSION: Hypoinflated lungs. Otherwise, no acute cardiopulmonary abnormality. D/ / Mt Crooks MD / Mt Crooks MD Interpreting Provider: Mt Crooks MD Consult Discharge Plan - Plan Referrals: Kleber Acuna DO [Primary Care Provider] -
[2017-09-22] MEDS: Aspirin 81 MG TAB.CHEW PO SCH (08:58)
--- NOTE | 2017-09-22 09:40 | Cardiology Progress Note ---
Date of Encounter: 09/22/17 Time of Encounter: 09:00 Assessment and Plan (1) Elevated troponin Current Visit: Yes Status: Acute Mild, adynamic troponin elevation in the setting of sepsis; suspect demand ischemia. Patient denies chest pain or discomfort. No acute ST/T wave abnormalities noted on ECG. Continue asa and statin. Will add low dose betablocker. Can d/c heparin gtt. Check echocardiogram to evaluate structure and function. No indication for cardiac rehab. If not significant abnormalities noted on TTE, no further cardiac testing recommended as inpatient. Recommend outpatient ischemic evaluation once acute issues have resolved. Recommend outpatient sleep study to evaluate for LUAN. Cardiology will sign-off, please call with significant TTE abnormalities. (2) Essential hypertension Current Visit: Yes Status: Acute Control improved with BB, recommend continuation in the outpatient setting. (3) Cellulitis Current Visit: Yes Status: Acute Mgmt per primary service. Qualifiers: Site of cellulitis: extremity Site of cellulitis of extremity: lower extremity Laterality: left Qualified Code(s): L03.116 - Cellulitis of left lower limb Discussion w patient/family: The assessment and plan as outlined above was discussed with the patient and/or family members who expressed understanding and agreement. All questions were answered. Thank you for involving us in the care of your patient. Please call with any questions. THe patient was discussed and reviewed with Dr. Amador; Cardiology will sign-off , please call with questions. Subjective Principal diagnosis: Sepsis, cellulitis, elevated trop Interval history: Seen and examined. No complaints overnight. Overall feels much better today. Denies chest pain /discomfort. Objective Vital Signs, Last 4 Hours Temp Pulse Resp BP Pulse Ox 09/22/17 07:20 98.3 F 82 16 137/82 96 General: Conversant HEENT: Atraumatic, Normocephaly Cardiac: Reg Rate and Rhythm, Normal S1 and S2 Lungs: Other (Wheezes throughout) Neuro: Alert and responsive Abdomen: Soft Skin: No rashes noted on visualized skin Musculoskeletal: No Chest Wall Tenderness Extremities: Other (large BLE, redness, edema +3) Results 09/22/17 04:41 09/22/17 04:41 Lab Results 09/21/17 09/22/17 09/22/17 14:31 04:41 04:41 WBC 10.2 D Hgb 13.1 Hct 38.5 Plt Count 111 L APTT 44.4 H Sodium 133 L Potassium 3.7 Chloride 107 Carbon Dioxide 22 L BUN 18 Creatinine 0.90 Glucose 126 H Calcium 8.5 L Magnesium 1.9 Active Medications Acetaminophen (Tylenol) 650 mg PO Q6H PRN PRN Reason: Mild Pain/Fever Stop: 03/22/18 22:48 Last Admin: 09/21/17 16:06 Dose: 650 mg Aspirin (Aspirin) 81 mg PO DAILY MIRIAN Stop: 03/23/18 09:01 Last Admin: 09/22/17 08:58 Dose: 81 mg Atorvastatin Calcium (Lipitor) 20 mg PO HS MIRIAN Stop: 03/23/18 21:01 Last Admin: 09/21/17 21:33 Dose: 20 mg Heparin Sodium (Porcine) (Heparin Lock) 500 unit IV ONCE PRN PRN Reason: Port Flush while in RADIOLOGY Stop: 09/22/17 20:26 Heparin Sodium (Porcine) (Heparin) 5,000 unit SQ Q8HCO MIRIAN Stop: 03/24/18 14:01 Hydralazine HCl (Hydralazine) 10 mg IVP Q6HR PRN PRN Reason: Hypertension Stop: 03/22/18 22:57 Last Admin: 09/21/17 16:05 Dose: 10 mg Vancomycin HCl 1,500 mg/ (Sodium Chloride) 250 mls @ 166.67 mls/hr IVPB Q12H MIRIAN Stop: 03/23/18 11:01 Last Admin: 09/21/17 22:28 Dose: 166.67 mls/hr Metoprolol Tartrate (Lopressor) 25 mg PO BID MIRIAN Stop: 03/23/18 21:01 Last Admin: 09/22/17 08:58 Dose: 25 mg Naloxone HCl (Narcan) 0.4 mg IVP Q2MIN PRN PRN Reason: SEE COMMENTS Stop: 03/22/18 22:48 Tramadol HCl (Ultram) 50 mg PO Q6H PRN PRN Reason: Moderate Pain Stop: 03/22/18 22:48 - Imaging and Cardiology Echo: pending - EKG Interpretation EKG results cardiology: personally reviewed Consult Discharge Plan - Plan Referrals: Kleber Acuna, [Primary Care Provider] -
[2017-09-22] MEDS: *HR* Heparin 5,000 UNIT/ML VIAL SQ SCH ×2 (14:50→20:58)
[2017-09-23] MEDS: *HR* Heparin 5,000 UNIT/ML VIAL SQ SCH (05:26)
[2017-09-23 05:55] LABS: Hemoglobin 12.8 g/dL (12.9-16.9); Red Cell Distribution Width 13.2 % (11.5-14.5)
[2017-09-23 05:57] LABS: Basophils % 0.4 %; Eosinophils # 0.2 K/mcL (0.0-0.6); Eosinophils % 2.4 %; Hematocrit 38.5 % (37.5-50.1); Immature Granulocytes % 0.9 % (0-4); Immature Platelets 5.8 % (1.1-6.1); Lymphocytes % 19.3 %; Mean Corpuscular HGB Conc 33.2 g/dL (31.6-35.5); Mean Corpuscular Hemoglobin 33.6 pg (28.0-33.3); Mean Platelet Volume 11.3 fL (9.4-12.4); Monocytes # 0.7 K/mcL (0.0-1.3); Monocytes % 10.5 %; Platelet Count 111 K/mcL (140-400); Red Blood Count 3.81 M/mcL (4.19-5.50); Segmented Neutrophils % 66.5 %
[2017-09-23 05:59] LABS: Lymphocytes # 1.4 K/mcL (0.6-4.6); Neutrophils # 4.7 K/mcL (1.6-8.9)
[2017-09-23 06:14] LABS: BUN/Creatinine Ratio 19 (6-26); Blood Urea Nitrogen 15 mg/dL (8-23); Calcium 8.6 mg/dL (8.6-10.3); Carbon Dioxide 23 mEq/L (23-29); Chloride 107 mEq/L (98-107); Glucose 123 mg/dL (70-105); Magnesium 2.1 mg/dL (1.6-2.6); Osmolality,Calculated 280 (280-300); Potassium 3.7 mEq/L (3.5-5.1); Sodium 134 mEq/L (136-145); eGFR For African Americans > 60 (> 60); eGFR For Non-African Americans > 60 (> 60)
[2017-09-23 07:24] VITALS: BP 124/73
[2017-09-23] MEDS: Aspirin 81 MG TAB.CHEW PO SCH (07:34)
--- NOTE | 2017-09-23 07:37 | Discharge Summary ---
- NOTES TO OUTPATIENT PROVIDER Notes to Outpatient Provider: Patient was treated for cellulitis. Had elevated trops. Cardiolog saw and thought it was likely from sepsis. They will see him in the outpatient setting. Patient was given contact information. Please make sure he gets referred to cardiology Orders not resulted at time of discharge: Pending orders 09/21/17 04:40 Sputum Culture [Culture,Sputum with Gram Stain] [] Routine Date of Encounter: 09/23/17 Time of Encounter: 07:35 - Discharge Diagnosis (1) Sepsis Priority: Primary Status: Acute Qualifiers: Sepsis type: sepsis due to unspecified organism Qualified Code(s): A41.9 - Sepsis, unspecified organism (2) Cellulitis Priority: Primary Status: Acute Qualifiers: Site of cellulitis: extremity Site of cellulitis of extremity: lower extremity Laterality: left Qualified Code(s): L03.116 - Cellulitis of left lower limb (3) Elevated troponin Priority: Primary Status: Acute (4) NSTEMI (non-ST elevated myocardial infarction) Priority: Primary Status: Acute (5) Elevated d-dimer Priority: Primary Status: Acute Hospital course: Mr. Lang is a 71 year old male who presented with a 12-15 hour history of short of breath, low-grade fevers, weakness, left leg pain, and chills. He was seen and evaluated in the ER and found to have evidence of left lower extremity cellulitis and sepsis. Additionally, he had an elevated d-dimer and positive troponin. This prompted CT angiogram of chest which was of sub-optimal quality. Nonetheless, it did rule out any central pulmonary embolus. Lower Extremity Doppler studies were ordered and negative. He was started on heparin drip given his symptoms and troponin elevation. He was subsequently admitted to the hospitalist service and cardiology stopped his heparin drip as they suspected this was all from demand ischemia from sepsis. He was started on broad-spectrum antibiotics and did very well in terms of signs of sepsis. Cardiology recommended a TTE which was done with no acute findings. He was discharged to finish treatment for lower extremity cellulitis. He was discharged on Bactrim. He was also given a prescription for beta emma from cardiology's recommendations. The patient was on aspirin and statin already. He was stable for discharge on 09/23. - Time Spent with Patient Total time spent providing and/or coordinating discharge services: Greater than 30 minutes - Discharge Medications Prescriptions: Metoprolol [Lopressor] 25 mg PO BID #60 tablet Sulfamethoxazole/Trimeth DS [Bactrim DS] 1 each PO BID #14 tablet Home Medications: Aspirin [Lo-Dose Aspirin EC] 81 mg PO DAILY 09/21/17 [History] Benzonatate [Tessalon] 100 mg PO TID 09/21/17 [History] Calcium Carbonate [Calcium] 600 mg PO DAILY 09/21/17 [History] Cholecalciferol (D-3) [Vitamin D] 1,000 unit PO DAILY 09/21/17 [History] Diclofenac Sodium [Voltaren] 2 gm TP QID 09/21/17 [History] Losartan Potassium [Cozaar] 100 mg PO DAILY 09/21/17 [History] Meloxicam [Mobic] 15 mg PO DAILY 09/21/17 [History] Potassium Chloride [Klor-Con 10] 10 meq PO DAILY 09/21/17 [History] Simvastatin [Zocor] 40 mg PO HS 09/21/17 [History] Metoprolol [Lopressor] 25 mg PO BID #60 tablet 09/23/17 [Rx] Sulfamethoxazole/Trimeth DS [Bactrim DS] 1 each PO BID #14 tablet 09/23/17 [Rx] Allergies/Adverse Reactions: 3 Allergy/AdvReac Type Severity Reaction Status Date / Time No Known Allergies Allergy Verified 09/20/17 19:21 Date of admission: 09/21/17 01:03 Primary care physician: Kleber Acuna, Consults: 09/22/17 08:19 Consult to Occupational Therapy [CONS] Routine Comment: Evaluate, develop and implement POC Reason for Consult: therapy/placement needs Does patient have active BEDREST order?: No Is patient medically & hemodynamically stable?: Yes Consult to Physical Therapy [CONS] Routine Comment: Evaluate, develop and implement POC Reason for Consult: PT eval Does patient have active BEDREST order?: No Is patient medically & hemodynamically stable?: Yes - Constitutional Vitals: Temp Pulse Resp BP Pulse Ox 97.7 F 65 17 124/73 96 09/23/17 07:19 09/23/17 07:19 09/23/17 07:19 09/23/17 07:19 09/23/17 07:19 General appearance: Present: cooperative, mild distress (appears ill but non- toxic; dry), A&O X 3, pleasant, answers questions appropriately Exam: GEN: NAD CVS: RRR. S1, S2, No m/r/g RESP: CTAB ABD: Soft, NT, ND, +BS EXT: both LE with chronic venous changes. Left lower extremity redness and warmth noted at the foot and ankle area. Mild edema. 2+ DP. No rashes NEURO: Nonfocal - Patient Status Disposition: Home, Self-Care Condition: Fair Overall status at discharge: patient is progressing back to baseline - Discharge Instructions Instructions: Sulfamethoxazole/Trimethoprim (By mouth), Metoprolol (By mouth), Myocardial Infarction (DC), Cellulitis (DC), Sepsis (DC) Follow Up With: Otto Jorge DO [Partnered Physician] - (2 weeks Office will call for an appt. Please call them if you do not hear from them...) [facility] [Non-Partnered Physician] - 09/30/17 10:00 am (Please follow up as schedule...) - Diet and Activity Activity: increase activity as tolerated Diet: low salt diet
[2017-09-23] MEDS ORDERED: Aminoglycoside Consult 1 EACH MC ONE (10:00)
--- NOTE | 2017-09-26 11:46 | Electrocardiograph Report ---
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
--- NOTE | 2017-09-26 11:54 | Electrocardiograph Report ---
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
== END 2017-09-23 10:01 | disposition home or self-care (01) | DRG 871 ==
LOC: 2ANU 19:19 → EMEROO 19:19 → 2ANU 23:23
PROVIDERS: ADMIT Pediatrics; ATTEND Internal Medicine

== ENCOUNTER 2019-08-12 19:54 | Observation (INO) ==
[2019-08-13] MEDS ORDERED: Naloxone 0.4 MG/ML INJ IVP PRN (01:36)
[2019-08-13] MEDS: Benzonatate 100 MG CAPSULE PO PRN ×2 (04:37→20:53)
[2019-08-13] MEDS: *HR* Heparin 5,000 UNIT/ML VIAL SQ SCH ×2 (05:55→17:38)
[2019-08-13 06:26] LABS: Mean Corpuscular Hemoglobin 34.3 pg (28.0-33.3); Red Cell Distribution Width 13.4 % (11.5-14.5)
[2019-08-13 06:28] LABS: Hematocrit 41.9 % (37.5-50.1); Hemoglobin 13.8 g/dL (12.9-16.9); Immature Platelets 8.8 % (1.1-6.1); Mean Corpuscular HGB Conc 32.9 g/dL (31.6-35.5); Mean Corpuscular Volume 104.2 fL (83.0-100.0); Mean Platelet Volume 11.7 fL (9.4-12.4); Red Blood Count 4.02 M/mcL (4.19-5.50); White Blood Count 10.4 K/mcL (4.3-11.1)
[2019-08-13 06:51] LABS: Calcium 8.8 mg/dL (8.6-10.3); Potassium 3.5 mEq/L (3.5-5.1)
[2019-08-13] MEDS ORDERED: Acetaminophen 325 MG TABLET PO PRN (08:44)
[2019-08-13] MEDS ORDERED: Ipratropium/Albuterol Neb 3 ML IH PRN (08:46)
[2019-08-13] MEDS ORDERED: Perflutren Lipid Microsphere 1.3 ML in 0.9 % Sodium Chloride 8.7 ML IVP ONE (10:23)
[2019-08-13] MEDS: Aspirin Enteric Coated 81 MG Tablet PO SCH (11:26)
[2019-08-13] MEDS: Cholecalciferol (D-3) 1,000 UNIT (25MCG) TABLET PO SCH (11:26)
[2019-08-13] MEDS: predniSONE 20 MG TABLET PO SCH (11:26)
[2019-08-13 12:41] LABS: Adenovirus Not Detected (Not Detect); Bordetella Pertussis Not Detected (Not Detect); Chlamydophila pneumoniae Not Detected (Not Detect); Coronavirus 229E Not Detected (Not Detect); Coronavirus HKU1 Not Detected (Not Detect); Coronavirus NL63 Not Detected (Not Detect); Coronavirus OC43 Not Detected (Not Detect); Human Metapneumovirus Not Detected (Not Detect); Human Rhinovirus/Enterovirus Not Detected (Not Detect); Influenza A Subtype 2009 H1 Not Detected (Not Detect); Mycoplasma pneumoniae Not Detected (Not Detect); Parainfluenza Virus 1 Not Detected (Not Detect); Parainfluenza Virus 2 Not Detected (Not Detect); Parainfluenza Virus 3 Not Detected (Not Detect); Parainfluenza Virus 4 Not Detected (Not Detect); Respiratory Syncytial Virus Not Detected (Not Detect)
[2019-08-13 12:43] LABS: Influenza B DETECTED (Not Detect)
[2019-08-13] MEDS: 0.9 % Sodium Chloride 1,000 ML IVC SCH (15:18)
[2019-08-14] MEDS: 0.9 % Sodium Chloride 1,000 ML IVC SCH (04:50)
[2019-08-14 05:43] LABS: Magnesium 2.2 mg/dL (1.6-2.6)
[2019-08-14 05:47] LABS: Calcium 8.8 mg/dL (8.6-10.3); Potassium 3.6 mEq/L (3.5-5.1)
[2019-08-14] MEDS: *HR* Heparin 5,000 UNIT/ML VIAL SQ SCH (06:07)
[2019-08-14] MEDS: Benzonatate 100 MG CAPSULE PO PRN (06:08)
[2019-08-14 06:49] VITALS: BP 139/76
[2019-08-14] MEDS: Aspirin Enteric Coated 81 MG Tablet PO SCH (09:12)
[2019-08-14] MEDS: Cholecalciferol (D-3) 1,000 UNIT (25MCG) TABLET PO SCH (09:12)
[2019-08-14] MEDS: predniSONE 20 MG TABLET PO SCH (09:13)
== END 2019-08-14 15:07 | disposition home or self-care (01) ==
LOC: 3BNU → SUATTDRO 22:01
PROVIDERS: ADMIT Family Medicine; ATTEND Internal Medicine